=== PATIENT | male | born 2000 | race Two or more races ===

== ENCOUNTER 2022-04-06 09:04 | Emergency (ER) | payer SELFPAY ==
[2022-04-06 09:47] VITALS: BP 131/72
[2022-04-06 10:40] LABS: Urine Specific Gravity 1.028 (1.001-1.035)
[2022-04-06 10:41] LABS: Urine Blood Negative /uL (Negative)
[2022-04-06] MEDS ORDERED: PHENSUP38 PR (10:54)
== END 2022-04-06 10:56 | disposition home or self-care (01) ==
LOC: ER 09:04
DX: K64.8 Other hemorrhoids (principal); R30.0 Dysuria
CPT/HCPCS: 81003